=== PATIENT | female | born 2000 | race Caucasian/White ===

== ENCOUNTER 2020-09-08 10:51 | Inpatient (IN) | payer OTHER ==
[~2020-09-08] VITALS: Ht 180.3 cm; Wt 85.8 kg
--- NOTE | 2020-09-08 11:35 | NUR ---
PT STATES HAD A UTI DIAGNOSED HERE. PT STATES SINCE TUESDAY A WEEK FROM TODAY TUESDAY CHILLS AND BODYACHES FATIGUED PAIN ALL OVER EPECIALLY IN THE BACK AND ABD THAT FEELS LIKE A TUMMY ACHE. AND UNABLE TO KEEP ANYTHING DOWN INCLUDING ANTIBIOTICS I AM TRYING TO DRINK FLUIDS BUT KEEPS THROWING UP. NO VAGINAL BLEEDING, URINE IS DARK [place] COLOR.
[2020-09-08 12:20] LABS: MICROSCOPIC INDICATED
[2020-09-08] MEDS ORDERED: ONDANSETRON 2MG/ML, 2ML ONE (12:27)
[2020-09-08] MEDS ORDERED: SODIUM CHLORIDE 0.9% 1,000ML IVBOLUS ONE (12:30)
[2020-09-08] MEDS ORDERED: SODIUM CHLORIDE FLUSH 10ML SYR IVF ONE (12:30)
[2020-09-08] MEDS ORDERED: ONDANSETRON 2MG/ML, 2ML IVPush ONE (12:30)
--- NOTE | 2020-09-08 12:30 | NUR ---
PRECEPTOR RN: PT MEDICATED PER MAR AT THIS TIME.
[2020-09-08 12:52] LABS: MEAN CORPUSCULAR HEMOGLOBIN 29.9 pg (27.0-34.8); MEAN CORPUSCULAR HGB CONC 33.6 g/dL (32.4-35.8); MEAN PLATELET VOLUME 8.5 fL (7.4-10.4); PLATELET COUNT 129 x10^3/uL (130-400); RED BLOOD COUNT 4.67 x10^6/uL (3.82-5.3); RED CELL DISTRIBUTION WIDTH 13.5 % (9.6-15.2)
[2020-09-08 13:00] LABS: ALANINE AMINOTRANSFERASE 345 U/L (12-78); ALBUMIN 3.1 g/dL (3.4-5.0); ANION GAP 9 mmol/L (5-15); CALCIUM 9.1 mg/dL (8.5-10.1); CHLORIDE 104 mmol/L (98-107); CREATININE 0.73 mg/dL (0.55-1.02)
[2020-09-08 13:05] LABS: ALKALINE PHOSPHATASE 361 U/L (45-117); BILIRUBIN,TOTAL 3.7 mg/dL (0.2-1.0); TOTAL PROTEIN 7.7 g/dL (6.4-8.2)
--- NOTE | 2020-09-08 13:49 | NUR ---
ULTRASOUND IN ROOM DOING EXAM.
[2020-09-08 14:08] LABS: BAND#(MANUAL) 0.15 x10^3/uL; BANDS%(MANUAL) 2 % (0-7); BASOS#(MANUAL) 0.07 x10^3/uL (0-0.3); BASOS% (MANUAL) 1 % (0-1); LYMPH#(MANUAL) 3.63 x10^3/uL (1-6.1); LYMPHS% (MANUAL) 49 % (22-44); MONOS#(MANUAL) 0.22 x10^3/uL (0.3-2.7); MONOS% (MANUAL) 3 % (2-9); REACTIVE LYMPHS % (MANUAL) 27 % (0-0); SEG#(MANUAL) 1.33 x10^3/uL (1.8-8); SEGS% (MANUAL) 18 % (42-75)
[2020-09-08 14:10] LABS: <RBC MORPHOLOGY> NORMAL
[2020-09-08 14:11] LABS: <PLATELET ESTIMATE> DECREASED; SMUDGE CELLS 1+
[2020-09-08 14:12] LABS: <PLT MORPHOLOGY> NORMAL PLT MORPH
[2020-09-08] MEDS ORDERED: LACTATED RINGERS 1,000 ML IV SCH (15:00)
[2020-09-08] MEDS ORDERED: CEFTRIAXONE 1,000 MG in DEXTROSE 5% 50 ML IVPB ONE (15:30)
--- NOTE | 2020-09-08 15:33 | NUR ---
TASK RN: PT TO MRI
--- NOTE | 2020-09-08 15:44 | NUR ---
PT TO MRI THEN TO FLOOR 337.
[2020-09-08 15:45] LABS: BILIRUBIN, DIRECT 2.8 mg/dL (0.1-0.2)
[2020-09-08 15:46] LABS: BILIRUBIN,INDIRECT 0.7 mg/dL (0.0-2.0); BILIRUBIN,TOTAL 3.5 mg/dL (0.2-1.0)
[2020-09-08 15:47] LABS: INTERNATIONAL NORMALIZED RATIO 1.05 (0.93-1.1); PROTHROMBIN TIME 11.2 Seconds (9.6-11.5)
[2020-09-08] MEDS ORDERED: HYDROmorphone 1 MG/ML, 1ML INJ IVPush PRN (19:00)
[2020-09-08] MEDS ORDERED: ACETAMINOPHEN 325 MG TABLET PO PRN (19:00)
[2020-09-08] MEDS ORDERED: MELATONIN 5 MG TABLET PO PRN (19:00)
[2020-09-08] MEDS ORDERED: POLYETHYLENE GLYCOL 17 GM PACKET PO PRN (19:00)
[2020-09-08] MEDS ORDERED: ONDANSETRON 2MG/ML, 2ML IVPush PRN (19:00)
[2020-09-08] MEDS ORDERED: ONDANSETRON ODT 4 MG PO PRN (19:00)
[2020-09-08] MEDS ORDERED: CEFTRIAXONE 1,000 MG in DEXTROSE 5% 50 ML IVPB SCH (19:00)
[2020-09-08 20:12] VITALS: BP 117/74
[2020-09-08 20:17] LABS: GAMMA GLUTAMYL TRANSPEPTIDASE 492 U/L (5-55)
[2020-09-08] MEDS: PANTOPRAZOLE 40 MG IV IVPush SCH (20:42)
[2020-09-08] MEDS: POTASSIUM CHLORIDE 10 MEQ in D5%-LACTATED RINGERS 1,000 ML IV SCH (20:42)
[2020-09-09 01:00] VITALS: BP 96/62
[2020-09-09 04:52] LABS: MEAN CORPUSCULAR HEMOGLOBIN 29.3 pg (27.0-34.8); MEAN CORPUSCULAR HGB CONC 33.2 g/dL (32.4-35.8); MEAN PLATELET VOLUME 8.7 fL (7.4-10.4); PLATELET COUNT 128 x10^3/uL (130-400); RED CELL DISTRIBUTION WIDTH 13.8 % (9.6-15.2)
[2020-09-09] MEDS: POTASSIUM CHLORIDE 10 MEQ in D5%-LACTATED RINGERS 1,000 ML IV SCH (05:01)
[2020-09-09 05:03] LABS: ALANINE AMINOTRANSFERASE 288 U/L (12-78); ALBUMIN 2.6 g/dL (3.4-5.0); ANION GAP 8 mmol/L (5-15); CALCIUM 8.8 mg/dL (8.5-10.1); CHLORIDE 106 mmol/L (98-107); CREATININE 0.69 mg/dL (0.55-1.02)
[2020-09-09 05:07] LABS: ALKALINE PHOSPHATASE 404 U/L (45-117); BILIRUBIN,TOTAL 2.5 mg/dL (0.2-1.0); CHOL/HDL RATIO 12.1; CHOLESTEROL, TOTAL 121 mg/dL (140-239); HDL CHOL % 8 % (28-40); HDL CHOLESTEROL (DIRECT) 10 mg/dL (40-60); LDL CHOLESTEROL,CALCULATED 65 mg/dL (54-169); LDL/HDL RATIO 6.5 (0.5-3.0); TOTAL PROTEIN 6.6 g/dL (6.4-8.2); TRIGLYCERIDES 228 mg/dL (50-200); VLDL CHOLESTEROL 46 mg/dL (0-25)
[2020-09-09 06:14] LABS: EOS#(MANUAL) 0.07 x10^3/uL (0.0-0.8); EOS% (MANUAL) 1 % (1-7); LYMPH#(MANUAL) 4.49 x10^3/uL (1-6.1); LYMPHS% (MANUAL) 69 % (22-44); MONOS% (MANUAL) 3 % (2-9); REACTIVE LYMPHS # (MANUAL) 0.65 x10^3/uL (0-0); REACTIVE LYMPHS % (MANUAL) 10 % (0-0); SEG#(MANUAL) 1.11 x10^3/uL (1.8-8); SEGS% (MANUAL) 17 % (42-75)
[2020-09-09 06:15] LABS: <RBC MORPHOLOGY> NORMAL; SMUDGE CELLS 1+
[2020-09-09 06:16] LABS: <PLATELET ESTIMATE> DECREASED; <PLT MORPHOLOGY> NORMAL PLT MORPH
[2020-09-09 07:33] VITALS: BP 100/64
[2020-09-09] MEDS: PANTOPRAZOLE 40 MG IV IVPush SCH (08:10)
[2020-09-09] MEDS ORDERED: PANT40GR PO (11:04)
[2020-09-09] MEDS ORDERED: AMOX1TAB64 PO (11:04)
[2020-09-09 13:54] LABS: ANA SCREEN NEGATIVE (Negative)
== END 2020-09-09 12:46 | disposition home or self-care (01) | DRG 690 ==
LOC: ED 15:06 → 3N 15:07 → DCLOUNGE 09-09 12:43
PROVIDERS: ADMIT Hospitalist; ATTEND Internal Medicine
DX: N39.0 Urinary tract infection, site not specified (principal); R17 Unspecified jaundice; B27.90 Infectious mononucleosis, unspecified without complication; D69.6 Thrombocytopenia, unspecified; E86.0 Dehydration; R79.89 Other specified abnormal findings of blood chemistry; M79.10 Myalgia, unspecified site; R94.5 Abnormal results of liver function studies
CPT/HCPCS: 36415; 96361; 96365; 96375; 99285; J7121; 74181; 76700; 80053; 80061; 80074; 80299; 81001; 82247; 82248; 82390; 82533; 82550; 82977; 83516; 83615; 83690; 83735; 84100; 84443; 84703; 85025; 85610; 86038; 86308; 86664; 86665; 87040; 87086; G0378; J0696; J1170; J2405; J3480; Q0162; C9113; J7030; J7120